=== PATIENT | male | born 1955 | race Caucasian/White ===

== ENCOUNTER 2016-10-07 13:29 | Inpatient (IN) | payer MEDICARE, MEDICAID ==
[~2016-10-07] VITALS: Ht 171.4 cm; Wt 163.9 kg
--- NOTE | ~2016-10-07 | ER ---
PATIENT'S NAME: SID ALVAREZ [facility] AGE: 61 Y [address] ROOM: [place] [address] LOCATION: GPCU ADMIT DATE: 10/07/2016 ER/Outpatient Report DISCHARGE DATE: FAMILY PHYSICIAN: Sinan Nascimento MD ATTENDING PHYSICIAN: Sinan Nascimento Time of Arrival: 1329 hours. Time Seen: 1332 hours. IDENTIFICATION: A 61-year-old male. CHIEF COMPLAINT: Illness. HISTORY OF PRESENT ILLNESS: The patient is a 61-year-old male who arrived by 911 ambulance. Most of the history was obtained from them as he does appear to be a little bit confused. He has had nausea, vomiting, headache, and fever for 1 day. Apparently, a neighbor or friend called and said that he was not acting normally and called 911. On arrival to the emergency room, the patient does confirm that he has had headache abdominal pain, nausea, and vomiting along with fever since yesterday. He has a chronic indwelling Barrera catheter. When I question him how long that it has been in there, he said that he had that placed when he was visiting his sister in [place], but it is not clear when that was. Dr. Nascimento stated that he was out in [place], but has been back now for about 6 weeks. ALLERGIES: DEMEROL AND PAPER TAPE. CURRENT MEDICATIONS: His medication box has, 1. Hydrocortisone 20 mg, filled in November of 2015, he was not able to tell me why he is on that and I do not see that on a recent medical list from the hospital. 2. Paroxetine 20 mg daily. 3. Cetirizine 10 mg daily. 4. Coumadin 5 mg 2 tablets every other day and 1-1/2 tablets every other day. 5. Pantoprazole 40 mg daily. 6. Lisinopril 10 mg b.i.d. 7. Lipitor 80 mg daily. 8. Cyclobenzaprine 10 mg b.i.d. 9. Metformin 500 mg 2 tablets b.i.d. PATIENT'S NAME: SID ALVAREZ [facility] AGE: 61 Y [address] ROOM: [address] [address] LOCATION: GPCU ADMIT DATE: 10/07/2016 ER/Outpatient Report DISCHARGE DATE: FAMILY PHYSICIAN: Sinan Nascimento MD ATTENDING PHYSICIAN: Sinan Nascimento 10. Colestipol 1 g b.i.d. 11. Aspirin 325 mg daily. 12. Tab-A-Yeison daily. 13. Vitamin B12 daily. 14. Tresiba subcutaneous daily. 15. Tamsulosin 0.4 mg daily. 16. Potassium chloride 20 mEq daily. 17. Tramadol b.i.d. p.r.n. 18. Methylphenidate 10 mg t.i.d. 19. Lasix 40 mg t.i.d. 20. Toprol-XL 25 mg daily. MEDICAL PROBLEMS: Coronary artery disease; hypertension; diabetes mellitus, insulin requiring; history of DVT, on chronic anticoagulation; dyslipidemia; gastroesophageal reflux disease; obesity; and BPH. PRIOR SURGERIES: Previous coronary artery stent, gastric bypass, hernia repair, cataract removal, neck and shoulder surgery, cholecystectomy, and carpal tunnel surgery. FAMILY HISTORY: Mother with heart disease. Sister with Eveline's. SOCIAL HISTORY: History of tobacco abuse, none currently. Alcohol use, denies. Drug use, denies. REVIEW OF SYSTEMS: All systems reviewed. The patient does complain of some abdominal pain. He denies chest pain. He has had a nonproductive cough. He denies shortness of breath. PHYSICAL EXAMINATION: VITAL SIGNS: Weight 160.4 kg. Blood pressure 185/139, pulse 118, respirations 20, temperature 101.8, and saturations 94%. Recheck blood pressure 177/73, recheck temperature 100.8. GENERAL: A 61-year-old male, in obvious distress. HEENT: Head: Normocephalic. Ears: TMs not visualized. Eyes: Pupils equal and reactive to light and accommodation. Extraocular movements intact. Nose: Mucosa pink. No lesions. Mouth: No lesions. Pharynx, benign. The patient does have some pink-tinged around his mouth. He said he had some strawberry Crystal Light prior to arrival. NECK: Supple. No lymphadenopathy. No nuchal rigidity. PATIENT'S NAME: SID ALVAREZ [facility] AGE: 61 Y [address] ROOM: [place] [address] LOCATION: [facility] ADMIT DATE: 10/07/2016 ER/Outpatient Report DISCHARGE DATE: FAMILY PHYSICIAN: Sinan Nascimento MD ATTENDING PHYSICIAN: Sinan Nascimento LUNGS: Clear to auscultation. Breath sounds are equal, but diminished in the bases. HEART: Regular rate and rhythm. No murmur, rub, or gallop. ABDOMEN: Bowel sounds present, protuberant, soft, nondistended. He has a large umbilical hernia. He is tender to palpation in the right side of his abdomen with voluntary guarding. No rebound. No CVA tenderness. SKIN: [place], warm, and dry. No other lesions or rashes noted. NEURO: He is alert and oriented to person, place, and time. Disoriented to situation. Cranial nerves 2 through 12 grossly intact. Motor strength 5/5 throughout. Sensation is intact to light touch. He has 1+ lower extremity edema. No calf tenderness. EMERGENCY DEPARTMENT COURSE: An IV was initiated as the one that he came in pre-hospital is no longer working, he pulled that out, so he had another one was initiated. EKG: Sinus rhythm with first-degree AV block, 77 beats per minute, right bundle-branch block, present on prior EKG dated March of 2016. UA from his catheter after it was replaced. The Barrera catheter was replaced and UA obtained. Specific gravity 1.015, pH 6, leukocytes positive, nitrites negative, 20-50 white cells, 20-50 red cells, 2-5 epithelial cells, many bacteria, and few white blood cell clumps. Urine culture pending. PTT 29. Serum ketones are negative. Accu-Chek on arrival 293. ABGs; pH 7.48, pCO2 37, PO2 60, and O2 saturation 92% on room air. Lactate 1.2. Sodium 130, potassium 4.3, chloride 94, CO2 of 28, BUN 17, creatinine 1, blood sugar 289. Liver enzymes normal. Amylase 18, lipase 79. CPK 56, CK-MB less than 0.5, troponin I less than 0.040. ProBNP 1069, previous proBNP in March. Hemoglobin A1c 12.7. Hemoglobin 12.5, hematocrit 40.6, white count 9.0 platelets 242, 70% segs, and 3% bands. Procalcitonin less than 0.05. Chest x-ray, 1 view: Cardiomegaly, poor inspiratory effort, possible right middle lobe infiltrate, pending Radiology over-read. Head CT without contrast: No acute process, pending Radiology over-read. Abdominal CT scan with no contrast: No acute findings. IMPRESSION: 1. Urinary tract infection with systemic inflammatory response consistent with sepsis. The patient does not meet severe sepsis criteria. Time zero for diagnosis was 1510 hours. 3-hour lactate has been ordered. Antibiotics were initiated to include Zosyn and Levaquin. 1 L IV fluid bolus was given and a second L at 150 mL/h. 2. Altered mental status. Head CT is negative. The patient did seem to clear here in the emergency room slightly as his fluids were infused and his temperature came down. Dr. Nascimento was notified of the situation 3 different times during his ER stay and he did remain hemodynamically stable here in the emergency room with blood pressure is coming down 170s/70s, heart rate came down to the 80s, and his O2 saturations remained greater than 90% on room air. PATIENT'S NAME: SID ALVAREZ [facility] AGE: 61 Y [address] ROOM: [address] [address] LOCATION: [facility] ADMIT DATE: 10/07/2016 ER/Outpatient Report DISCHARGE DATE: FAMILY PHYSICIAN: Sinan Nascimento MD ATTENDING PHYSICIAN: Sinan Nascimento Other medical problems include: 1. Abdominal pain with large umbilical hernia. 2. Diabetes mellitus, insulin requiring with hyperglycemia. No evidence of diabetic ketoacidosis. 3. Mild hyponatremia. 4. History of deep venous thrombosis, on anticoagulation, but INR is subtherapeutic. 5. Known coronary artery disease. Negative cardiac enzymes and stable EKG. DISPOSITION: The patient was taken to U telemetry in stable condition. VARGAS FISHER MD CAR/modl /[id number] d: 10/08/16 0101 t: 10/19/16 0833, OUTPATIENT REPORT
--- NOTE | ~2016-10-07 | CON ---
PATIENT'S NAME: SID ALVAREZ [facility] AGE: 61 Y [address] ROOM: [place] [address] LOCATION: GPCU ADMIT DATE: 10/07/2016 Consultation DISCHARGE DATE: FAMILY PHYSICIAN: Michael Nascimento MD ATTENDING PHYSICIAN: Michael Nascimento DATE OF CONSULTATION: 10/08/2016 REFERRING PHYSICIAN: MICHAEL NASCIMENTO MD REASON FOR CONSULT: Left heel pressure ulcer. HISTORY OF PRESENT ILLNESS: This is a 61-year-old male patient who was admitted to [facility] with sepsis. He has a significant history of type 2 diabetes mellitus, coronary artery disease, hypertension, BPH, obesity, and GERD. His left heel ulcer has been present since May 2016. He has been applying a cream to the site. He recently obtained new orthotics from [facility] He complains of 5/10 pain. He admits to peripheral neuropathy. He complains of a groin rash. He normally uses nystatin powder and an "antifungal cream." He normally wears solaris garments, but did not bring them with him to the hospital. He reports a poor oral intake. He does complain of a headache and shortness of breath on exertion. He denies constitutional symptoms. He does appear to be having seizures during my interaction. He is complaining of buttocks pain this morning per nursing. He is disabled and lives by himself. PAST MEDICAL HISTORY: Type 2 diabetes mellitus, peripheral neuropathy, hypercholesteremia, essential hypertension, asthma, osteoarthritis, pancreatitis, psoriasis, depression, ADHD, hepatitis, coronary artery disease, history of DVT, BPH, obesity, and GERD. PAST SURGICAL HISTORY: Heart catheterization, right leg skin graft, right knee surgery, left knee surgery, left shoulder surgery, bilateral hand surgery, hernia repair, cholecystectomy, neck fusion, lumpectomy, abdominal reduction, gastric sleeve, tonsillectomy, cataract repair, and green field filter. FAMILY HISTORY: Positive for heart disease. SOCIAL HISTORY: The patient lives by himself in [place]. He is disabled. Quit smoking about seven years ago. PATIENT'S NAME: SID ALVAREZ [facility] AGE: 61 Y [address] ROOM: [place] [address] LOCATION: GPCU ADMIT DATE: 10/07/2016 Consultation DISCHARGE DATE: FAMILY PHYSICIAN: Michael Nascimento MD ATTENDING PHYSICIAN: Michael Nasciemnto ALLERGIES: MEPERIDINE, ACETAMINOPHEN, PAPER TAPE. CURRENT MEDICATIONS: Please refer to medication administration record. REVIEW OF SYSTEMS: Pertinent positives addressed in the HPI. All others are negative. PHYSICAL EXAMINATION: VITAL SIGNS: Temperature 100.3, pulse 66, respirations 16, blood pressure 160/71, pulse oximetry 96% on room air. Height 5 feet 7-1/2 and weight 163.3 kg. GENERAL: The patient is alert and conversational. Twice during our interaction, he did lean to the left side. Eyes noted to be rolled back with twitching to his bottom lip for about a minute. No response during that time. The patient noted he could not hear me and did not know what had happened. HEENT: Head is normocephalic, atraumatic. NEUROLOGICAL: Deferred. ABDOMEN: Large umbilical hernia. CARDIOVASCULAR: Regular rate and rhythm noted per monitor. EXTREMITIES: +2 pedal pulses. +2 pitting lower leg edema. Dark hemosiderin staining noted. No active ulcers. Capillary refill intact. Toenails are not thick or mycotic. EXTREMITIES: Warm to touch. SKIN: The patient's left medial heel ulcer measures 1.0 cm with a 1.0 cm length x 0.3 cm depth. Wound bed is dark red. A small amount of bloody exudate noted. Periwound is callus and slightly purple in color. No fluctuance or induration noted. Area is nontender to touch. No erythema. The patient's gluteal crease dermal ulcer measures 0.3 cm with a 1.0 cm length x 0.1 cm depth. Wound bed is moist pink. Scant serous exudate. Periwound intact with blanchable erythema. Slight redness noted to groin folds. LABORATORY DATA: White blood cell count 8.4, hemoglobin 11.0, hematocrit 35.0, platelets 223. Sodium 133, potassium 3.3, chloride 100, bicarb 26, BUN 21, creatinine 1.0, glucose 124. Albumin 2.4. ASSESSMENT AND PLAN: This is a pleasant 61-year-old male patient who was admitted to [facility] with sepsis. Wound Care consult to evaluate a left heel pressure ulcer. 1. Left heel stage III full-thickness pressure ulcer present on admission. The wound appears to be down to the subcutaneous layer. No signs of PATIENT'S NAME: SID ALVAREZ [facility] AGE: 61 Y [address] ROOM: [id number] [place], [place] [address] LOCATION: GPCU ADMIT DATE: 10/07/2016 Consultation DISCHARGE DATE: FAMILY PHYSICIAN: Michael Nascimento MD ATTENDING PHYSICIAN: Michael Nascimento infection. Offloading is a priority. Ordered post footdrop boot, the patient is to have on at all times. I instructed the nursing to cleanse the heel ulcer and apply Mepilex foam dressing, changing on Tuesdays and Fridays and p.r.n. saturation. I would like nursing to apply the dressing today. Dietary consult will be ordered. 2. Gluteal crease dermal ulcer. Area consistent with moisture trapping. I instructed nursing to perform pressure relief measures and apply Aloe Vernon moisture barrier to the site q.i.d. p.r.n. incontinence. 3. Candidiasis and groin rash. Nystatin topical ointment will be applied b.i.d. after application wash cloths to be applied. 4. Lower leg edema. Clinically, the patient appears to have venous insufficiency. He does wear Solaris wraps at home. For now, I instructed nursing to apply size D Tubigrip to both lower extremities on in the morning, off at bedtime. If his friend is able to bring his Solaris wraps, they can transition to them at that time. 5. Obesity. The patient requesting bariatric mattress. We will order. 6. Type 2 diabetes mellitus. Patient on Accu-Cheks. I would like to thank Dr. Suzanne Nascimento for this consult. CAREN WEINSTEIN APRN FOR MD ADELE FERREIRA/mary /[id number] d: 10/09/16 0113 t: 10/15/16 1544, CONSULTATION REPORT
--- NOTE | ~2016-10-07 | CON ---
PATIENT'S NAME: SID ALVAREZ [facility] AGE: 61 Y [address] ROOM: [place] [address] LOCATION: GPCU ADMIT DATE: 10/07/2016 Consultation DISCHARGE DATE: FAMILY PHYSICIAN: Sinan Nascimento MD ATTENDING PHYSICIAN: Sinan Nascimento DATE OF CONSULTATION: 10/08/2016 REFERRING PHYSICIAN: JUNIOR SESAY MD TIME SEEN: 3:05 p.m. He is seen in neurological consultation. CHIEF COMPLAINT: Headache. HISTORY OF PRESENT ILLNESS: This is a 61-year-old male, who arrived to the emergency room per ambulance. History is obtained from the chart and from the patient, although the patient seems a bit confused. He states he has had a headache most prominently at the vertex of his head for the last 3 days. He has also had vomiting and nausea with this and been unable to the eat. His friend actually was the one who called 911 and said he was not acting right. In the emergency room, the patient states he has the headache, abdominal pain, nausea and vomiting along with a fever since yesterday. He does have a chronic indwelling Barrera catheter. PAST MEDICAL HISTORY: 1. Coronary artery disease. 2. Hypertension. 3. Insulin-dependent diabetes mellitus type 2. 4. History of DVT. 5. Chronic anticoagulation with Coumadin. 6. Dyslipidemia. 7. GERD. 8. Obesity. 9. BPH. PAST SURGICAL HISTORY: 1. Previous coronary intervention with stenting. 2. Gastric bypass. 3. Hernia repair. 4. Cataract removal. 5. Neck and shoulder surgery. PATIENT'S NAME: SID ALVAREZ [facility] AGE: 61 Y [address] ROOM: [address] [address] LOCATION: GPCU ADMIT DATE: 10/07/2016 Consultation DISCHARGE DATE: FAMILY PHYSICIAN: Sinan Nascimento MD ATTENDING PHYSICIAN: Sinan Nascimento 6. Cholecystectomy. 7. Carpal tunnel surgery. FAMILY HISTORY: His mother had a history of heart disease with stenting to her coronary arteries. He has 1 sister with Eveline's syndrome. SOCIAL HISTORY: The patient has a remote tobacco history. He did use chewing tobacco for about 50 years and quit 7 years ago. He denies alcohol or illicit drug use. CURRENT MEDICATIONS: On the chart and reviewed by me. Of note, the patient does take tramadol 50 mg b.i.d. p.r.n. Upon further investigation, the patient says he takes this quite frequently. MEDICATION ALLERGIES: Meperidine causes itching. REVIEW OF SYSTEMS: A 12-point review of systems was completed and all systems are negative except for those mentioned in the HPI. DIAGNOSTICS: The patient did have a CT of his head, which was essentially negative. His lowest sodium upon admission was 130, but now is 133. PHYSICAL EXAMINATION: VITAL SIGNS: Temperature 97.9, pulse 69, respirations 24, blood pressure is 164/82, and O2 saturations are 93% on room air. GENERAL: The patient is disheveled and has a hard time paying attention to the interview. EYES: Sclerae clear. Extraocular movements are intact. HEAD: Atraumatic and normocephalic. ENT: No nuchal rigidity noted. No JVD or carotid bruits auscultated. CHEST: Respirations are slightly labored. Lung sounds are diminished throughout. HEART: Regular rate and rhythm. S1, S2. ABDOMEN: Distended and firm. MUSCULOSKELETAL: Equal muscle strength in upper and lower extremities, has difficulty with strength in left upper extremity due to absence of clavicle. EXTREMITIES: Peripheral pulses palpable. He does have 2 to 3+ edema and venous staining of his lower extremities. NEUROLOGIC: Able to participate in the interview. He is alert and oriented. He does not have the greatest insight into his illness. He does state that the PATIENT'S NAME: SID ALVAREZ [facility] AGE: 61 Y [address] ROOM: [place] [address] [facility] AD[facility] DATE: 10/07/2016 Consultation DISCHARGE DATE: FAMILY PHYSICIAN: Sinan Nascimento MD ATTENDING PHYSICIAN: Sinan Nascimento headache has been on the vertex of his head. He denies any vision issues and I am able to get a full vision field test done without any incident. No focal deficits were noted on any of the neurological exam. IMPRESSION AND PLAN: Headache of 3 days' duration. The patient states he has really never had a headache like this before. He has not been able to the eat and has been nauseated. We did get an EEG, although the official read on that is pending. The patient does have incidences where he turns his head to the left and shuts 1 eye. He is unarousable during those times and then has a short period of confusion and then back to his baseline. In any event, Dr. Alvarado would like to try Depacon 1000 mg q.12 hours for 3 doses to see if this improves the patient's headache. Final EEG evaluation is still pending. The sodium was definitely not low enough to cause any type of seizure event. We would like to thank Dr. Nascimento for the opportunity to participate in his patient's care. The plan of care was discussed with the patient and Dr. Alvarado was given Dr. Nascimento's number to discuss the plan of care. If you have any questions, please do not hesitate to notify us. We will follow again tomorrow to see if the Depacon has helped. Physician Attestation: I have seen and evaluated the patient with LUIS Espana via telemedicine. This includes gathering history and performing physical exam as outlined above. As we initially outlined the plan prior to the EEG report, after EEG finalized, it was noted patient had 3 electrographic seizure during 20 minute recording. Advised loading of LEVetiracetam 2000 mg IV x 1, then LEV 1000 BID instead of Depacon. Discussed with Dr. Nascimento that if patient normalizes, continue LEV. IF continued events despite starting LEV, may need transfer to center with continuous EEG capabilities and possibly need LP. Neurology will follow. YEISON ARROYO APRN FOR ERNIE ALVARADO MD PP/mariol /[id number] d: 10/08/16 2218 t: 10/10/16 1345, CONSULTATION REPORT
--- NOTE | ~2016-10-07 | PN ---
PATIENT'S NAME: SID ALVAREZ [facility] AGE: 61 Y [address] ROOM: [id number] [place], [place] [address] LOCATION: GPCU ADMIT DATE: 10/07/2016 Progress Notes DISCHARGE DATE: FAMILY PHYSICIAN: Sinan Nascimento MD ATTENDING PHYSICIAN: Sinan Nascimento DATE OF SERVICE: 10/09/2016 TIME: 11:45 p.m. HISTORY OF PRESENT ILLNESS: The patient was seen yesterday in neurological consultation for headache and possible seizure-like activity. He was loaded on Keppra 2 grams last night. According to the nursing staff, he continues to have his episodes where his head would turn to the left, he squints his right eye, and he is basically unresponsive for 1 minute to 30 seconds. PHYSICAL EXAMINATION: GENERAL: The patient is awake and alert today and able to cooperate with the interview; however, he states he just does not feel well. VITAL SIGNS: The patient's vital signs are; temp 96.8, pulse 60, blood pressure 159/74, and oxygen saturations 96%. NEURO: The patient is alert and oriented x3. He is a poor historian, but is able to answer simple questions. He states he just does not feel good. On exam, his pupils are equal and reactive to light and accommodation. Cranial nerves 2 through 12 are essentially intact. There is no focal deficit noted. He is able to raise his arms and legs, and strength is possibly 4/5 in all extremities. Deep tendon reflexes are preserved at 3/5. Sensation intact to upper and lower extremities. DIAGNOSTICS: An EEG was completed yesterday. In the light of a 23-minute EEG, the patient had 3 seizures, so he was basically in focal status. ASSESSMENT AND PLAN: The patient continues to have episodes today despite maximal Keppra therapy. We will load with 2 grams of Dilantin. In discussing with his primary care physician, Dr. Nascimento, he would like him to go to [facility] for further treatment of the seizure disorder. We will continue with the Dilantin 2 grams IV as loaded before, transfer. This was discussed with the nurse. We would like to thank Dr. Nascimento for the opportunity to participate in this patient's care. Please do not hesitate to notify us if there are any questions. PATIENT'S NAME: SID ALVAREZ [facility] AGE: 61 Y [address] ROOM: [address] [place], [place] [address] [facility] AD[facility] DATE: 10/07/2016 Progress Notes DISCHARGE DATE: FAMILY PHYSICIAN: Sinan Nascimento MD ATTENDING PHYSICIAN: Sinan Nascimento YEISON ARROYO APRN FOR JUNIOR SESAY MD PP/modl /[id number] d: 10/09/16 1305 t: 10/11/16 1203, PROGRESS NOTES
--- NOTE | ~2016-10-07 | HP ---
PATIENT'S NAME: AYO BRODERICK [facility] AGE: 61 Y [address] ROOM: [id number] [place], [place] [address] LOCATION: [facility] ADMIT DATE: 10/07/2016 History & Physical DISCHARGE DATE: FAMILY PHYSICIAN: Sinan Nascimento MD ATTENDING PHYSICIAN: Sinan Nascimento DATE OF SERVICE: HISTORY OF PRESENT ILLNESS: Ayo Broderick enters the hospital after arriving with the EMT folks from his [address] to the emergency room. I received a call from one of his neighbors who said that Ayo was not doing well, appeared to be ill, and was very confused, talking about people that were not there and had not been around for quite a while. On presentation in the emergency room, Ayo had an elevated temperature, was confused, appeared to be having seizures, and was initially unresponsive to verbal questioning; however, they state that he from time to time would come around and visit. They of course cultured appropriate areas, blood cultures, and called me for report on his condition as he obviously needed to be admitted to the hospital. On visiting with Ayo off and on over the past 18 hours, he states that he has not felt well for 2 or 3 days, said he has been a little nauseated, had some lower abdominal pain. Has had bleeding from his catheter site, he said off and on maybe for the last week. Did not talk about any temperature. I saw Ayo late last week in person, and at that time, he did not appear to be ill in any way. However, I think he talked to my son on Thursday evening, and my son said that he sounded like he had been a little confused at that time. PAST MEDICAL HISTORY: Exorbitant. Ayo has had a number of serious musculoskeletal problems over the years, a number of shoulder surgeries, seriously knee surgeries, back surgeries, and he overall has had a great deal of problems over the years orthopedically. Never a small person. Twenty-five years ago, he weighed 225 to 235 at 5 feet 7 inches and eventually topped out at 400 and got bariatric surgery, which he had some success, but has been unable to keep the weight off due to personal eating habits and also his lack of ability to get any kind of exercise basically secondary to a knee injury and surgery that left him almost unable to walk or support his weight. Of course, he has difficulties with especially his left shoulder which makes it very difficult for him to support any weight with a walker. So, 95% of the time, Ayo is in a wheelchair, tolerates reasonably well. He has been diabetic for a number of years. He has some heart disease with prior stenting that he seems to be tolerating reasonably well. I think that Ayo gets along quite well with all the problems that he has accumulated over the years. The last 3 or 4 months have been very difficult from a personal standpoint. A sister suffered a severe stroke in [facility]. She was transferred from the [facility] to PATIENT'S NAME: AYO BRODERICK [facility] AGE: 61 Y [address] ROOM: [id number] [place] [id number] LOCATION: [facility] ADMIT DATE: 10/07/2016 History & Physical DISCHARGE DATE: FAMILY PHYSICIAN: Sinan Nascimento MD ATTENDING PHYSICIAN: Sinan Nascimento in [place]. Ayo went down and stayed with her for approximately 2 months, living in her hospital room with her and of course the whole time in his wheelchair, and then, during that time, his father , and of course he went home back to the in [place], so it has been a very difficult time. Ayo worked for me for about 15 years, and we were very close, and of course we kept in close contact over this time. Ayo's list of medications is extensive. I would say he is probably on 20 to 25 regular medications, and they can be reviewed in the chart. We will continue the ones that seem to be appropriate at this time. Of course, the patient is diabetic. Also of interest is the fact that the patient is anticoagulated with Coumadin. Continuing the review of systems and past medical history, when Ayo was in [place] with his sister, he had troubles with controlling his urine. He went to the emergency room I believe at [facility], and in order to control his symptoms at that time, he had been on tamsulosin, and I believe that they put an indwelling catheter, and Ayo has had a catheter for the last probably 2 to 3 months. When I realized this when I visited with him last week, I said we need to see if we can do something about that, whether it is to try removing the cath or whether we need to go to a suprapubic or whatever, and I had in fact talked to Dr. Alex Dominguez about this on Thursday morning, and they were going to make arrangements to visit with Ayo about this in the office. PHYSICAL EXAMINATION: GENERAL: Ayo Broderick is a 61-year-old white male, very obese, weighing probably close to 350 pounds or more. HEENT: He is round faced, short hair, some whitish pate stubble on his face, always a little cherubic in appearance with some red cheeks. Dentition is not the best anymore. Ears: Dull. Nose: Dry. Eyes: Extraocular muscles intact when he is not having a seizure. Tongue protrudes in the midline. NECK: Neck region is extremely bulky, difficulty to evaluate. I do not believe there are any masses present. CARDIAC: Heart sounds are transmitted. I do not hear any bruits. CHEST AND BACK: Here again, exceptionally thick. Can auscultate his heart, seems to be regular. No murmurs. Breath sounds are auscultated in all lung hernández. ABDOMEN: Humongous, and a number of healed scars. Has some tenderness in the lower abdomen. The abdomen of course is a little abnormal in configuration due to all the surgeries. In the groin, there is a catheter in place, and there is bleeding around his perineal area and perhaps also some leakage of urine around the edge of the catheter. EXTREMITIES: The patient moves all extremities, and of course they are all quite obese. There are warm and dry. NEUROLOGIC: Certainly interesting. Cesar may be conversing with you, and it may PATIENT'S NAME: AYO BRODERICK [facility] AGE: 61 Y [address] ROOM: [place] [address] LOCATION: [facility] ADMIT DATE: 10/07/2016 History & Physical DISCHARGE DATE: FAMILY PHYSICIAN: Sinan Nascimento MD ATTENDING PHYSICIAN: Sinan Nascimento seem to be reasonably appropriate, and he may be seem to be cognizant and even appropriate to time, person, and place, and then, all of a sudden, he will turn his head to the left, gaze up a little bit, close his eyes, and his right hand goes out away from his body. He has a right angle at his elbow, puts his right hand over his head, and then he seems to have his left hand down by his side of his body and it is as if he has a pill rolling motion with his left finger tips. That may last for 1-1/2 to 3 minutes, and then Ayo all of a sudden seems to come back around. Sometimes, he comes back around and is quite confused, and then other times, he comes back around, and he is once again able to carry on a reasonable conversation. He says that he has had a headache recently and some neck pain, but of course he has had neck pain for an extensive length of time due to cervical disk disease. PLAN: Plan of course is IV antibiotics to probably deal with what in the past turned out to be an E coli sepsis from his urine, control of his diabetes with sliding scale, adequate fluid replacement. Adjust blood pressure as needed. Visit with Dr. Dominguez again about urologic system, and we have decided that we will visit with Dr. Huitron about the off and on seizures. MD TONJA RASHEED/mary /[id number] D: 328 T: 423 HISTORY & PHYSICAL
--- NOTE | ~2016-10-07 | DS ---
PATIENT'S NAME: SID BRODERICK AGE: 61 Y [address] ROOM: [id number] [place], [place] [address] LOCATION: [facility] ADMIT DATE: 10/07/2016 Discharge Summary DISCHARGE DATE: 10/09/2016 FAMILY PHYSICIAN: Michael Nascimento MD ATTENDING PHYSICIAN: Michael Nascimento TRANSFER SUMMARY: Cesar Broderick entered the hospital through the emergency room after I had a call from one of his cohabitants at the [facility] and said that Cesar was confused. Cesar arrived in the emergency room, and he continued to be confused. They felt that maybe he was having intermittent seizures. On the other hand, he had periods of lucidity. However, his temperature was elevated in the range of 102. He is obviously not doing well. The initial thought was that perhaps he was suffering from urosepsis due to an indwelling catheter that he has had for several months, and he has had this particular problem in the past on 2 or 3 separate occasions and showed up in our emergency room facility in a very ill situation with sepsis before. We admitted him, and he continued to have alternate periods of apparent seizure activity with periods of clear sensorium when we were able to converse with him, and he would pass on the appropriate historical figures of the past few days. Interestingly enough, his white blood count was not elevated a great deal. His temperature came down rather quickly with administration of IV antibiotics, I believe in the form of Levaquin and Zosyn. The patient had some initial hypertension, which we treated with hydralazine, and it brought down to a normal value. His blood sugars were better than normal; however, he did not vary from his initial pattern of one of seizures and then clearing. Following his admission, the next morning he continued the same picture, so I wrote for a Neurology consult, and we had Teleneurology evaluate the patient. He had an EEG and the teleneurologist called me and said that the patient was showing epileptiform seizure activity on his EEG, and he suggested we start Keppra overnight, and if the patient cleared that will be an encouraging sign, and if he did not, might be appropriate to send him on to a tertiary medical center. My decision was that the patient needed to completely cease with the seizures if we were going to keep him, otherwise, I planned to transfer him to [facility]. The following morning, the patient upon my arrival continued to have intermittent spells. These spells would be as follows: The patient would close his eyes and turn his head up and to the left. He would extend his right arm out to shoulder height and flex it up at the elbow. He would then put his left hand down along his left side and exhibit a pill rolling type activity with his hands. This had continued since his admission. Occasionally when he cleared sometimes, he would be in a postictal state, and then other times, he would be completely lucid and visit with us, although sometimes even during periods of lucidity, he seemed to be somewhat confused with the recent time frame and what had transpired for him. PATIENT'S NAME: SID BRODERICK AGE: 61 Y [address] ROOM: [place] [address] LOCATION: [facility] ADMIT DATE: 10/07/2016 Discharge Summary DISCHARGE DATE: 10/09/2016 FAMILY PHYSICIAN: Michael Nascimento MD ATTENDING PHYSICIAN: Michael Nascimento Prior to his admission in the hospital, I visited with Dr. Alex Dominguez about perhaps a different situation for Cesar from the standpoint of a suprapubic catheter, and of course this came up again during hospitalization. Due to the fact that we are transferring him to [facility] at this time, of course, they will address that issue I assume when he is down there. Cesar was sent via the ambulance. I talked to Dr. Trinidad at the [facility], who I assume was a chief resident, and she said that radha Us is currently the staff physician,who is going to manage him when he arrives. FINAL DIAGNOSES: 1. Suspected urosepsis with epileptiform seizure activity. 2. Diabetes. 3. Hypertensive episodes. 4. Severe obesity. 5. Narcolepsy. 6. History of multiple orthopedic surgeries and injuries. MICHAEL NASCIMENTO MD JDN/modl /[id number] d: 10/11/16 0459 t: 10/15/16 1426, DISCHARGE SUMMARY
--- NOTE | ~2016-10-07 | NDGEN ---
PATIENT'S NAME: SID ALVAREZ [facility] AGE: 61 Y [address] ROOM: [place] [address] LOCATION: [facility] ADMIT DATE: 10/07/2016 Neurodiagnostics DISCHARGE DATE: FAMILY PHYSICIAN: Sinan Nascimento MD ATTENDING PHYSICIAN: Sinan Nascimento PROCEDURE: ELECTROENCEPHALOGRAM DATE OF PROCEDURE: 10/08/2016 TEST: TECH: CLINICAL DIAGNOSIS: EEG REPORT DURATION OF EE minutes. REASON FOR EEG: Seizures. CLINICAL HISTORY: The patient is a 61-year-old male, who appeared to be a bit confused, had nausea, vomiting, and headaches for a day. A neighbor or a friend called and said he was not acting normally. EEG FINDINGS: The patient was awake for the majority of the EEG. A background of 7 hertz was seen in the posterior head regions. The patient had 3 seizures during these episodes which start from the right hemisphere and evolved primarily in the right hemisphere. No video was available, but according to the annotations, the patient's head turn to the left, his eye squint, and he is unresponsive, and each episode lasts anywhere between 1 minute to 1 minute 30 seconds. The EEG shows sharply contoured rhythmic theta to delta waves starting and evolving primarily in the right hemisphere and come to an abrupt end. CLASSIFICATION: Abnormal III; awake, 10/20 scalp electrodes. 1. Status epilepticus - three clinical seizures with right-sided origin and evolution on the right side with corresponding left head turn and eye movements were seen. 2. Background slow. IMPRESSION: This EEG shows evidence of possible status epilepticus with three clinical seizures seen in the duration of 22 minutes of this EEG. Each seizure lasted anywhere between 1 minute to 1 minute 30 seconds. All three seizures had similar electrographic pattern with starting and evolution PATIENT'S NAME: SID ALVAREZ [facility] AGE: 61 Y [address] ROOM: [place] [address] LOCATION: [facility] ADMIT DATE: 10/07/2016 Neurodiagnostics DISCHARGE DATE: FAMILY PHYSICIAN: Sinan Nascimento MD ATTENDING PHYSICIAN: Sinan Nascimento primarily on the right side. Please correlate clinically. MD JUICE FRY/mary /[id number] dtt: 10/09/16 0942 MARIS RAM MOHAN R. dtd: 10/08/16 1706
[~2016-10-07 13:29] MED LIST changes: -ASPIRIN325 MG PO
[2016-10-07 14:12] LABS: HEMATOCRIT 40.6 % (37.0-53.0); HEMOGLOBIN 12.5 g/dL (11.0-16.0); MCHC 30.8 gm/dL (32.0-36.5); MCV 74.6 fl (83.0-98.0); MPV 9.4 fl (9.4-12.4); PLATELET COUNT 242 K/uL (150-450); RBC 5.44 M/uL (3.50-5.50); RDW-CV 18.3 % (11.9-14.6)
[2016-10-07 14:15] LABS: INR - (THERAPEUTIC) 1.51 (0.92-1.07); PROTIME 15.9 SECONDS (9.8-11.4)
[2016-10-07 14:20] LABS: BICARBONATE 27.6 mmol/L (18.0-23.0); LACTATE 1.2 mEq/L (0.50-1.60); PCO2 37 mmHg (35-45); PO2 60 mmHg (80-90)
[2016-10-07 14:29] LABS: ALBUMIN 2.9 gm/dL (3.5-5.0); ALK PHOS 108 IU/L (33-138); ALT 18 IU/L (12-78); ANION GAP 12.3 (10.0-19.0); AST 14 IU/L (10-40); BLOOD UREA NITROGEN 17 mg/dL (6-24); CALCIUM 8.3 mg/dL (8.5-10.5); CHLORIDE 94 mMol/L (96-110); CO2 28 mMol/L (22-32); ESTIMATED GFR (MDRD EQUATION) > 60; POTASSIUM 4.3 mMol/L (3.7-5.1); SODIUM 130 mMol/L (135-145); TOTAL BILIRUBIN 0.5 mg/dL (0.0-1.5); TOTAL PROTEIN 7.6 g/dL (6.0-8.4)
[2016-10-07 14:33] LABS: CPK 56 IU/L (35-332)
[2016-10-07 14:41] LABS: BANDED NEUTROPHIL # 0.3 K/uL (0.0-0.1); BANDED NEUTROPHILS % 3 %; LYMPHOCYTE # 1.5 K/uL (0.8-4.0); LYMPHOCYTE % 17 %; MONOCYTE # 0.5 K/uL (0.0-1.0); SEGMENTED NEUTROPHIL # 6.8 K/uL (1.4-9.0); SEGMENTED NEUTROPHIL % 75 %
[2016-10-07 15:35] LABS: BILIRUBIN URINE NEGATIVE (NEGATIVE); BLOOD URINE 250 /UL (NEGATIVE); COLOR URINE YELLOW (YELLOW); GLUCOSE URINE 1000 mg/dL (NEGATIVE); KETONE URINE 5 mg/dL (NEGATIVE); LEUKOCYTES URINE 500 /UL (NEGATIVE); NITRITE URINE NEGATIVE (NEGATIVE); PROTEIN URINE 100 mg/dL (NEGATIVE); SPEC GRAVITY URINE 1.015 (1.003-1.035); TURBIDITY URINE 2+ (CLEAR); UROBILINOGEN URINE NORMAL (NORMAL)
[2016-10-07 15:48] LABS: RBC URINE 20-50 #/HPF (NEGATIVE); WBC URINE 20-50 #/HPF (NEGATIVE)
[2016-10-07 15:49] LABS: AMORPHOUS URINE 1+ (NEGATIVE); BACTERIA URINE MANY (NEGATIVE); WBC CLUMPS URINE FEW (NEGATIVE)
[2016-10-07] MEDS ORDERED: ASPIRIN325 MG PO (18:08)
--- NOTE | 2016-10-07 18:43 | NUR ---
patient is 61 yo male admitted from the emergency room. unsure of patient history at this time. patient answers a few questions, but only "simple" answers. when asked more detailed questions, he just appears to stare with no response. unable to educate patient at this time due to apparent seizure activity and possible postictal state. pneumatics on feet as pt has dry, but previously open areas on left lower leg. report is given to OLY Medina.
[2016-10-08 04:44] LABS: BASOPHIL % 0.2 %; EOSINOPHIL % 0.4 %; IMMATURE GRANULOCYTE % 0.2 %; LYMPHOCYTE # 1.7 K/uL (0.8-4.0); LYMPHOCYTE % 20.7 %; MCH 23.3 pg (27.0-34.0); MCHC 31.4 gm/dL (32.0-36.5); MONOCYTE # 0.8 K/uL (0.0-1.0); MONOCYTE % 9.9 %; MPV 9.6 fl (9.4-12.4); NEUTROPHIL # (ANC) 5.8 K/uL (1.4-9.0); NEUTROPHIL % 68.6 %; NRBC % 0 /100WBC (0-0.00); PLATELET COUNT 223 K/uL (150-450); RBC 4.73 M/uL (3.50-5.50); RDW-CV 17.9 % (11.9-14.6); WBC 8.4 K/uL (4.0-11.0)
[2016-10-08 04:52] LABS: PROTIME 15.8 SECONDS (9.8-11.4)
[2016-10-08 05:04] LABS: ALBUMIN 2.4 gm/dL (3.5-5.0); ALK PHOS 81 IU/L (33-138); ALT 15 IU/L (12-78); ANION GAP 10.3 (10.0-19.0); AST 11 IU/L (10-40); BLOOD UREA NITROGEN 21 mg/dL (6-24); CALCIUM 7.5 mg/dL (8.5-10.5); CHLORIDE 100 mMol/L (96-110); CO2 26 mMol/L (22-32); ESTIMATED GFR (MDRD EQUATION) > 60; SODIUM 133 mMol/L (135-145); TOTAL BILIRUBIN 0.4 mg/dL (0.0-1.5); TOTAL PROTEIN 6.3 g/dL (6.0-8.4)
[2016-10-08 05:08] LABS: POTASSIUM 3.3 mMol/L (3.7-5.1)
--- NOTE | 2016-10-08 05:13 | NUR ---
Significant events: Pt oriented x3, in and out of alertness. Pt continues to have episodes where he nods off and does not respond to verbal or painful stimuli, which lasts for about 30 seconds to a minute and then does not know what happened. VSS, SBP 110-150's, HR 60-70's, on RA, temp 99-102.8. Home CPAP when sleeping. IV to R) hand, NS at 75cc/hr. IV antibiotics continue. Jacobo in place, bleeding/oozing around urethra. BM this shift. Zofran x1 this shift. Ulcer to L) heel, WOC consulted. ACHS accucheck. Tramadol x1 for headache. Clear liquid diet. Slept most of shift.
--- NOTE | 2016-10-08 09:19 | NUR ---
Late entry on patient from 10/07/16. This RN educator was helping primary nurse admit this patient at approximately 1725. On arrival, while transferring from cart to bed with transport members, Carol He RN (primary) and Mayra Villalpando RN (charge) patient's head was flat and patient had unresponsive episode where he stared off to the left. After transferring to bed and head was elevated became arousable, oriented x3 again but drowsy/confused at times. Patient kept experiencing these episodes lasting a few seconds to under a minute. SBPs were 200-220s, and temps were 101s-103s oral. Accucheck was 312. RRs were 20-24 on room air. Primary nurse called Dr.JD Nascimento primary to update. This RN educator called rapid response at approximately 1735 with BP of 227/90 and temp of 103.1 with patient still experiencing these changes in response. and present. Continues to have no change in status. At approximately 1750 Dr.JD Nascimento present assessing patient and writing orders. Primary nurse handing off report to oncoming nurse.
--- NOTE | 2016-10-08 15:37 | NUR ---
1434 Ayo was sleeping when I went to visit with him. Will try to see him tomorrow to talk about eventual dismissal plans/goals. CM to continue to follow and assist. I also left a sticky note on the chart for MD to see if we could get therapies on board whenever they felt like it was appropriate.
--- NOTE | 2016-10-08 17:00 | NUR ---
Significant Event: Alert and oriented X 3. Room air. SBP 120's, 160's and 170's. HR 60's. Temp's 98.8, 98.7, 100.3. Bedrest d/t seizure activities. Seizure activities last approx 30 sec. Patient does not respond at this time. Patient does not jerk, turns head to the left with. O2 does drop into the mid 80's for a very short time during episode, rebounds rapidly. Patient has status epilepticus. Keppra started. 2 bowel movements this shift. Barrera catheter intact with 800 ml out this shift. Clear liquid diet. Pleasant and cooperative with cares. Follow up: Continue to monitor seizure activity.
[2016-10-09 05:20] LABS: BASOPHIL % 0.6 %; EOSINOPHIL # 0.1 K/uL (0.0-0.5); EOSINOPHIL % 1.6 %; HEMOGLOBIN 11.3 g/dL (11.0-16.0); IMMATURE GRANULOCYTE % 0.3 %; LYMPHOCYTE # 1.6 K/uL (0.8-4.0); LYMPHOCYTE % 25.7 %; MCH 22.9 pg (27.0-34.0); MCHC 30.5 gm/dL (32.0-36.5); MCV 74.9 fl (83.0-98.0); MONOCYTE # 0.6 K/uL (0.0-1.0); MONOCYTE % 10.2 %; MPV 9.1 fl (9.4-12.4); NEUTROPHIL # (ANC) 3.9 K/uL (1.4-9.0); NEUTROPHIL % 61.6 %; NRBC % 0 /100WBC (0-0.00); PLATELET COUNT 204 K/uL (150-450); RBC 4.94 M/uL (3.50-5.50); RDW-CV 18.3 % (11.9-14.6); WBC 6.3 K/uL (4.0-11.0)
[2016-10-09 05:34] LABS: INR - (THERAPEUTIC) 1.45 (0.92-1.07); PROTIME 15.3 SECONDS (9.8-11.4)
[2016-10-09 05:41] LABS: ALBUMIN 2.4 gm/dL (3.5-5.0); ALK PHOS 80 IU/L (33-138); ALT 17 IU/L (12-78); ANION GAP 8.2 (10.0-19.0); AST 15 IU/L (10-40); BLOOD UREA NITROGEN 16 mg/dL (6-24); CALCIUM 7.8 mg/dL (8.5-10.5); CHLORIDE 107 mMol/L (96-110); CO2 27 mMol/L (22-32); CREATININE 0.8 mg/dL (0.6-1.3); ESTIMATED GFR (MDRD EQUATION) > 60; POTASSIUM 3.2 mMol/L (3.7-5.1); SODIUM 139 mMol/L (135-145); TOTAL BILIRUBIN 0.4 mg/dL (0.0-1.5); TOTAL PROTEIN 6.2 g/dL (6.0-8.4)
--- NOTE | 2016-10-09 05:44 | NUR ---
Significant Event: Patient alert and answers some yes/no questions. At times he refuses to answer/acknowledge questions, even when asked repeatedly. Vital signs are stable. On room air during the day and CPAP at night. He had 3 loose BM's last night; stool sample sent to test for C. diff which is negative. Patient is incontinent of stool. Barrera in place with good UOP. Some [place] discharge noted around urethral opening. He denies any pain. No seizure activity noted. Follow up: Doing Keppra IV BID. Continue to monitor mental status.
--- NOTE | 2016-10-09 13:32 | NUR ---
Significant Event: pt still having episodes of seizurelike activity, pt cannot respond at times, but otherwise alert/oriented, neuros negative. Loose xlarge bm this am on bedpan. Urine very yellow, good amount in nayak. Pt drinks his liquids with assist. CPAP off this am, on room air. Motrin at 1015 for headache. Bedrest. BG 206 at 11, 4 units insulin given. Dilantin iv given. Follow up:
--- NOTE | 2016-10-09 14:50 | NUR ---
[address]JD Nascimento that he was wanting Cesar to transfer to [facility] today if possible. 1200 I went up to the floor, phoned OLY Loo, she tells me that Dr.JD Nascimento had filled out orders but she hadn't gotten a phone call saying that [facility] had a bed yet. I phoned over to [facility], , talked with embedded developer, Rona, who tells me that they are aware of Cesar coming to them and they are just waiting on another patient to transfer floors and then they will be able to accept him. Let Rona know I was going to set up an ambulance transfer for 1400 today. Rona tells me that this should be more than enough time to get the other patient transfered to another floor in house. Gave her the [facility] station number to call once a bed number was know and also OLY Arndt' direct extension so RN to RN report could be done. Rona says that they will be calling [facility] floor once a bed is open. Called down to EMS, talked with Caitlyn, set up a non emergent ambulance crew to take Cesar to [facility] at 1400. Caitlyn says she will work on lining up a crew, it probably won't be ours, but she couldn't tell me which crew it would be. Told her this was fine and to call me if anything should change. I then called over to Dr.JD Nascimento, he tells me that is the resident that is accepting Cesar once he gets to [facility]. Informed him that I set up an ambulance for 1400, he was fine with this. He asked if I had any contacts listed for Cesar, told him that I only had a Gay listed, that number was given to and he was going to call and update them to the news that Cesar would be moved. Updated transmitter engineer in charge Lynn to all of this and also left a sticky note on the chart for OLY Loo so she knew the plan as well. Tried to call her x2 to update her but no answer and wasn't able to locate her in the U hallway. No other questions, needs or concerns. CM to continue to follow and assist. Plan [facility] today.
--- NOTE | 2016-10-09 17:08 | NUR ---
d-dr king pt transfer to [facility] for further work i-nurse and assistant secretary got packet ready, background told to ems pt vitals/hx/pt seiurelike activity today, labs, iv meds, motrin for headache, alert/oriented sleepy with dilantin, iv, 02 room air, loose bm, uop chronic malini, r-pt states understanding of going to [facility], his cell phone went with him has been talking to people this am on it and told them he go [facility], sbp was 177, now 95 after toprol, pt bedrest, accucheck 206 4units pt drank his lunch p-ems took pt per cart no problems,
--- NOTE | 2016-10-09 17:13 | NUR ---
d- i-report called to [facility] [phone] nurse, of pt hx/vitals/meds/labs/ alertoriented,seizurelike today, neuros other normal, pt does not walk uses w/c at his apt, iv, dilantin, r-no more questions
== END 2016-10-09 14:20 | disposition critical access hospital (66) | DRG 871 ==
LOC: GMED 13:29 → GPCU 16:25
PROVIDERS: Family Medicine; Nurse Practitioner Family; ADMIT Family Medicine
DX: A41.9 Sepsis, unspecified organism (principal); G93.40 Encephalopathy, unspecified; G40.911 Epilepsy, unspecified, intractable, with status epilepticus; E11.42 Type 2 diabetes mellitus with diabetic polyneuropathy; T83.511A Infection and inflammatory reaction due to indwelling urethral catheter, initial encounter; E11.621 Type 2 diabetes mellitus with foot ulcer; B37.9 Candidiasis, unspecified; Z68.43 Body mass index [BMI] 50.0-59.9, adult; L97.421 Non-pressure chronic ulcer of left heel and midfoot limited to breakdown of skin; E66.01 Morbid (severe) obesity due to excess calories; N40.0 Benign prostatic hyperplasia without lower urinary tract symptoms; I25.10 Atherosclerotic heart disease of native coronary artery without angina pectoris; I10 Essential (primary) hypertension; E78.5 Hyperlipidemia, unspecified; Z86.718 Personal history of other venous thrombosis and embolism; Z79.01 Long term (current) use of anticoagulants; K21.9 Gastro-esophageal reflux disease without esophagitis; Z79.4 Long term (current) use of insulin; Z95.5 Presence of coronary angioplasty implant and graft; Z87.891 Personal history of nicotine dependence; F90.9 Attention-deficit hyperactivity disorder, unspecified type; F32.9 Major depressive disorder, single episode, unspecified; J45.909 Unspecified asthma, uncomplicated; M19.90 Unspecified osteoarthritis, unspecified site; Z88.8 Allergy status to other drugs, medicaments and biological substances
CPT/HCPCS: C9113; J0360; J1165; J1953; J1956; J2405; J2543; J7030; J7040; J7050; J7060

== ENCOUNTER → 2016-10-07 | Outpatient (CLI) | payer MEDICARE, MEDICAID ==
[~2016-10-07] MED LIST: AFRIN) (GENASAL15 ML NOSE; APRESOLINE50 MG PO; ASPIRIN325 MG PO; ASPIRIN81 MG PO; BACTRIM DS1 TAB PO; CALCIUM 500 +1 EAC3 PO; CARAFATE1 GM PO; CENTRAL-VITE S1 EACH PO; CLARITIN10 MG PO; COLESTID1 GM PO; COUMADIN ** IA5 MG PO; COUMADIN PO; CPAP; CYCLOBENZAPRINE5 MG PO; DIFLUCAN100 MG PO; FLEXERIL10 MG PO; FLOMAX0.4 MG PO; FLONASE 50 MCG/16 GM NOSE; FLONASE NS; FLORASTOR250 MG PO; GLUCAGON/GLUCAGE1 MG SUB-Q; GLUCOPHAGE1000 MG PO; GLUCOPHAGE500 MG PO; GLUCOSE4 GM PO; GRISEOFULVIN500 MG PO; HUMULIN 70100 UNIT/1 SUB-Q; HUMULIN 70100 UNIT/M SUB-Q; HYDROCORTISONE20 MG PO; INSULIN PEN; K-TAB OR KLOR-10 MEQ PO; KEFLEX500 MG PO; LASIX40 M1 PO; LEVAQUIN750 MG PO; LIPITOR80 MG PO; LISINOPRIL10 MG PO; LISINOPRIL2.5 MG PO; MAG-OX-400(241400 MG PO; MICONAZORB AF71 GM TOP; MYCOSTATIN CREA30 GM TOP; NORCO 5-325 MG1 TAB PO; NYSTATIN1 EAC7 TOP; PAXIL20 MG PO; PHENERGAN PO; POTASSIUM CHLO20 ME1 PO; PRILOSEC OTC20 MG PO; PRINIVIL OR ZES10 MG PO; PROMETHAZINE V120 ML PO; PROTONIX40 MG PO; RITALIN 10MG10 MG PO; RITALIN10 MG PO; TOPROL XL 5050 MG PO; TRESIBA FL200 UNIT/1 SUB-Q; TYLENOL EXTRA500 MG PO; TYLENOL325 MG PO; ULTRAM50 MG PO; VITAMIN B-121000 MC1 PO; ZETIA10 MG PO; ZYRTEC10 MG PO
== END | disposition disaster alternative care site (69) ==
LOC: GAMB 13:04
DX: R50.9 Fever, unspecified (principal); I20.9 Angina pectoris, unspecified; E11.9 Type 2 diabetes mellitus without complications; R51 Headache; R11.2 Nausea with vomiting, unspecified; Z79.899 Other long term (current) drug therapy; Z79.01 Long term (current) use of anticoagulants; Z88.8 Allergy status to other drugs, medicaments and biological substances; Z79.84 Long term (current) use of oral hypoglycemic drugs; Z79.82 Long term (current) use of aspirin; Z79.891 Long term (current) use of opiate analgesic; Z91.048 Other nonmedicinal substance allergy status
CPT/HCPCS: A0425; A0427; J2405